=== PATIENT | female | born 1950 | race Caucasian/White ===

== ENCOUNTER 2021-04-25 15:30 | Inpatient (IN) | payer BC, OTHER ==
[~2021-04-25] VITALS: Ht 167.6 cm; Wt 73.9 kg
[2021-04-25 15:33] VITALS: BP 120/55
[2021-04-25 16:59] LABS: ABSOLUTE NEUTROPHILS 7.1 thou/uL (1.4-8.2); BASOPHILS 1.3 % (0.0-2.0); EOSINOPHILS 1.3 % (0.0-3.0); HEMATOCRIT 29.6 % (37.0-47.0); HEMOGLOBIN 9.4 gm/dL (12.0-15.0); MCH 28.4 pg (26.0-34.0); MCHC 31.6 g/dL (28.0-37.0); MCV 89.7 fL (80.0-100.0); MONOCYTES 12.1 % (1.0-8.0); PLATELET COUNT 873 thou/uL (150-400); POLYS 81.3 % (36.0-66.0); RDW 16.5 % (10.5-14.5); WBC 8.7 thou/uL (4.0-11.0)
[2021-04-25 17:18] LABS: CALCIUM 10.1 mg/dL (8.5-10.1); CREATININE 0.7 mg/dL (0.6-1.0); POTASSIUM 3.7 mmol/L (3.5-5.1)
[2021-04-25 17:24] LABS: ALBUMIN 1.8 g/dL (3.4-5.0); TOTAL BILIRUBIN 0.8 mg/dL (0.2-1.0); TOTAL PROTEIN 6.6 g/dL (6.4-8.2)
[2021-04-25 21:20] VITALS: BP 95/48
[2021-04-25 21:50] LABS: URINE BILIRUBIN 1+ (Negative); URINE BLOOD 3+ (Negative); URINE CLARITY CLOUDY; URINE COLOR RED; URINE GLUCOSE-RANDOM* NEGATIVE (Negative); URINE KETONES NEGATIVE (Negative); URINE LEUKOCYTES-REFLEX TRACE (Negative); URINE NITRITE-REFLEX NEGATIVE (Negative); URINE PROTEIN (DIPSTICK) 1+ (Negative)
[2021-04-25 21:52] LABS: ICTOTEST (BILI CONFIRMATORY) Negative (Negative)
[2021-04-25 21:53] LABS: BACTERIA-REFLEX 1-9 Few /HPF (None Seen); CASTS None Seen /LPF (None Seen); CRYSTALS None Seen /LPF (None Seen); SQUAMOUS 0-3 Few /LPF (0-3); URINE WBC-REFLEX 0-5 Rare /HPF (0-5)
--- NOTE | 2021-04-25 21:56 | NUR ---
PER PT'S DAUGHTER THE PT'S HEARTRATE IS NORMALLY IN THE 60 AND BP IS "NORMALLY LOW."
[2021-04-25 22:35] LABS: APTT 33.3 Seconds (24.5-32.8); INR 1.08; PROTIME 11.7 Seconds (10.5-12.1)
[2021-04-26] MEDS ORDERED: ATORVASTATIN CA20 MG PO
[2021-04-26] MEDS ORDERED: CELECOXIB200 MG PO
[2021-04-26] MEDS ORDERED: OMEPRAZOLE 20 M20 M1 PO (00:01)
[2021-04-26] MEDS ORDERED: LATANOPROST 0.2.5 ML OPHTHALMIC (00:01)
[2021-04-26] MEDS ORDERED: PROAIR HFA8.5 GM INH (00:01)
[2021-04-26] MEDS ORDERED: NEURONTIN 300M300 M2 PO (00:01)
[2021-04-26] MEDS ORDERED: CLEARLAX17 GM PO (00:02)
[2021-04-26] MEDS ORDERED: VITAMIN D21250 MCG PO (00:02)
[2021-04-26] MEDS ORDERED: PRESERVISION A1 EACH PO (00:03)
[2021-04-26] MEDS ORDERED: SAVELLA100 MG PO (00:03)
[2021-04-26] MEDS ORDERED: PERCOCET 10-321 EAC1 PO (00:04)
[2021-04-26 00:53] VITALS: BP 102/49
[2021-04-26 05:59] LABS: HEMATOCRIT 26.5 % (37.0-47.0); HEMOGLOBIN 8.6 gm/dL (12.0-15.0); MCH 28.9 pg (26.0-34.0); MCHC 32.3 g/dL (28.0-37.0); MCV 89.4 fL (80.0-100.0); RBC 2.96 mil/uL (4.20-5.00); RDW 16.9 % (10.5-14.5); WBC 7.7 thou/uL (4.0-11.0)
[2021-04-26 06:26] LABS: CALCIUM 9.4 mg/dL (8.5-10.1); CREATININE 0.7 mg/dL (0.6-1.0); POTASSIUM 3.7 mmol/L (3.5-5.1)
--- NOTE | 2021-04-26 12:20 | NUR ---
PT MOVED TO [facility] ED AT THIS TIME FOR CONTINUING CARE. REPORT GIVEN TO MIGUE SMITH AT THIS TIME
[2021-04-26 14:35] VITALS: BP 146/53
[2021-04-26 14:55] VITALS: BP 104/45
[2021-04-26 19:22] VITALS: BP 116/59
--- NOTE | 2021-04-26 20:38 | NUR ---
PATIENT ADMITTED TO CCU FROM ED - ADMITTED FOR RIGHT SIDED PLUERAL EFFUSION. PLAN TO HAVE SURGERY WITH DR. SMITH TOMORROW 04/27. PATIENT AND DAUGHTER BOTH AWARE AND AGREEABLE. CONSENTS SIGNED. PLACED ON TELE. SINUS RHYTHM. REMAINS ON ROOM AIR, REPORTS SHORTNESS OF BREATH WITH ACTIVITY BUT NO HYPOXIA. PATIENT NERVOUS ABOUT SURGERY TOMORROW DUE TO PREVIOUS SURGICAL HISTORY AND COMPLICATIONS. COMFORT PROVIDED. IV FLUIDS INFUSING. ADMISSION ASSESSMENTS COMPLETE. MED REC UPDATED. CONSENTS SIGNED. PRN PAIN MEDICATION GIVEN PER JUL. EDUCATED PATIENT ON NPO STATUS AT [facility]. DAUGHTER TO BE HERE IN THE MORNING PRIOR TO SURGERY. INSTRUCTED DAUGHTER TO BRING ANY VALUABLE OR PERSONAL BELONGINGS HOME THE PATIENT WILL GO TO OR THEN ICU POST OP. DAUGHTER WILL TAKE PT PURSE HOME. ALL QUESTIONS AND CONCERNS ANSWERED. PATIENT ADMITTED WITH EXISITING WOUNDS TO [facility]. PICUTRES TAKEN ON ADMIT AND IN PATIENT CHART.
[2021-04-27 04:55] VITALS: BP 115/65
[2021-04-27 05:36] LABS: GLYCOHEMOGLOBIN (HGB A1C) 5.5 % (4.8-5.6)
--- NOTE | 2021-04-27 05:42 | NUR ---
PT UP WITH ASSIST AND WALKER TO BR TO VOID SEVERAL TIMES THRU THE NOC, REMAINS NPO FOR VAT LATER THIS AM, PRN PAIN MEDS GIVEN FOR C/O NON CARDIAC CP, IV FLUIDS INFUSING IN L ARM IV SITE, VSS, WILL CON'T TO MONITOR PER PPOC.
[2021-04-27 07:57] VITALS: BP 118/55
[2021-04-27 08:48] LABS: HEMATOCRIT 27.6 % (37.0-47.0); HEMOGLOBIN 9.2 gm/dL (12.0-15.0); MCH 29.5 pg (26.0-34.0); MCHC 33.3 g/dL (28.0-37.0); MCV 88.5 fL (80.0-100.0); RBC 3.12 mil/uL (4.20-5.00); RDW 16.9 % (10.5-14.5); WBC 8.2 thou/uL (4.0-11.0)
[2021-04-27 08:53] LABS: CALCIUM 9.7 mg/dL (8.5-10.1); CREATININE 0.7 mg/dL (0.6-1.0); POTASSIUM 3.5 mmol/L (3.5-5.1)
--- NOTE | 2021-04-27 20:16 | NUR ---
Pt arrived to ICU accompanied by PACU RNs. Pt has right radial arterial line. pt has cardene gtt and NS IVF infusing at the right antecubital PIV and pt has fentanyl COATING MACHINE OPERATOR HELPER infusing at the continuous rate of 15mcg/hr. COATING MACHINE OPERATOR HELPER pump setting was verified and pump volume was cleared with ION IMPLANT MACHINE OPERATOR. Chest tubes insertion location was checked at the bedside with ION IMPLANT MACHINE OPERATOR. Drainage on the arrival to the icu was marked at the atrium. continue to monitor.
[2021-04-28] VITALS (17 sets, daily range): BP systolic 129–154; BP diastolic 52–75
[2021-04-28 03:54] LABS: HEMATOCRIT 33.8 % (37.0-47.0); MCH 28.7 pg (26.0-34.0); MCHC 32.5 g/dL (28.0-37.0); MCV 88.4 fL (80.0-100.0); RBC 3.83 mil/uL (4.20-5.00); RDW 16.4 % (10.5-14.5); WBC 12.3 thou/uL (4.0-11.0)
[2021-04-28 04:09] LABS: CALCIUM 9.8 mg/dL (8.5-10.1); CREATININE 0.5 mg/dL (0.6-1.0); MAGNESIUM 1.4 mg/dL (1.8-2.4); POTASSIUM 3.7 mmol/L (3.5-5.1)
--- NOTE | 2021-04-28 07:45 | NUR ---
ORDERS FOR EVAL AND TREAT HOWEVER Pt NOW IN ICU. WILL PLACE ON HOLD AND AWAIT NEW ORDERS WHEN APPROPRIATE
--- NOTE | 2021-04-28 09:34 | NUR ---
WOUND CONSULT; BILTERAL SBUTTOCKS STAGE 2 PRESSURE INJURIES WERE IDENTIFIED. SMALL SEROSANGINOUS DRAINAGE NOTED WITH NO ODOR. NO ERYTHEMA TO THE PERIWOUND. THE PATIENT HAS NO OTHER WOUND CARE CONCERNS AT THIS TIME. RECOMMENDATIONS; -BARRIER CREAM BID. -PRN COVER WITH A BORDER FOAM IF NEEDED. -TURN Q2H AT A MINIMUM, USE WEDGES AND PILLOWS. DISCUSSED WITH RN.
--- NOTE | 2021-04-28 10:07 | NUR ---
WOUND CONSULT; THE PATIENT HAS AREAS TO THE BILATERAL BUTTOCKS CONSISTANT WITH STAGE 2 PRESSURE INJURY. SCANT CLEAR DRAINAGE SEEN. NON ODOROUS. RECOMMENDATIONS; -BARRIER CREAM BID -Q2H TURNING AT A MINIMUM -USE WEDGES AND PILLOWS. DISCUSSED WITH RN
--- NOTE | 2021-04-28 16:59 | NUR ---
INITIAL ASSESSMENT: SW reviewed chart and spoke with nursing and hospitalist. Case also discussed during ICU rounds. Pt was transferred to [facility] from [facility] due to right pleural effusion. Pt is s/p VATS. Pt is on 1L of O2 and has chest tube in place. MIGUEL met with pt and son at bedside. Introduced role of SW. Pt is alert/orientated x 4. Pt reports she lives at home with her dtr. Prior to admission, pt was independent with ADLs. No use of DME or home O2. No hx of HH or post-acute placement. Pt's PCP is Dr. Daniel Tim in [place]. Therapy ordered to evaluate pt post-procedure. SW discussed discharge needs. Pt's son states they might be interested in HH services. Pt lives outside of [place]. MIGUEL is following to assist as needed with discharge planning.
[2021-04-29] VITALS (23 sets, daily range): BP systolic 116–144; BP diastolic 49–75
[2021-04-29 05:14] LABS: CALCIUM 9.1 mg/dL (8.5-10.1); CREATININE 0.5 mg/dL (0.6-1.0); MAGNESIUM 1.8 mg/dL (1.8-2.4); POTASSIUM 3.9 mmol/L (3.5-5.1)
[2021-04-29 05:16] LABS: HEMOGLOBIN 10.3 gm/dL (12.0-15.0); MCHC 32.5 g/dL (28.0-37.0)
[2021-04-29 05:19] LABS: HEMATOCRIT 31.6 % (37.0-47.0); MCH 28.8 pg (26.0-34.0); MCV 88.7 fL (80.0-100.0); RBC 3.56 mil/uL (4.20-5.00); RDW 16.5 % (10.5-14.5); WBC 11.3 thou/uL (4.0-11.0)
--- NOTE | 2021-04-29 13:22 | NUR ---
Fentanyl SHAKER OUT with basal discontiuned per provider and order changed to SHAKER OUT demand only at the same rate- 15 mcg, max 150 mcg 1-hour, and 6 minute lockout. Same bag infusing.
--- NOTE | 2021-04-29 16:34 | NUR ---
MIGUEL reviewed chart and spoke with nursing and hospitalist. Pt is POD#1 right VATS. Pt is on 2L of O2 via NC. Therapy evals ordered. [facility] consulted to assess for possible admission to inpt acute rehab. Will need insurance authorization for post-acute placement. MIGUEL spoke with [facility] and [facility], which are the two agencies who service wher pt lives. [place] is not able to start care until next week. HH referral to be faxed if needed. MIGUEL is following to assist as needed with discharge planning.
[2021-04-30] VITALS (11 sets, daily range): BP systolic 103–130; BP diastolic 40–57
[2021-04-30 05:50] LABS: HEMATOCRIT 27.7 % (37.0-47.0); HEMOGLOBIN 9.1 gm/dL (12.0-15.0); MCH 28.9 pg (26.0-34.0); MCHC 32.9 g/dL (28.0-37.0); MCV 87.9 fL (80.0-100.0); RBC 3.15 mil/uL (4.20-5.00); RDW 16.3 % (10.5-14.5); WBC 11.6 thou/uL (4.0-11.0)
[2021-04-30 06:22] LABS: CREATININE 0.5 mg/dL (0.6-1.0); MAGNESIUM 1.7 mg/dL (1.8-2.4); POTASSIUM 3.4 mmol/L (3.5-5.1)
--- NOTE | 2021-04-30 11:09 | NUR ---
SW reviewed chart and spoke with nursing and hospitalist. Case also discussed during ICU rounds. Pt is s/p right VATS. Chest tube is out. Pt is on room air. Case discussed with [facility] medical liaison, who states they are able to accept pt. SW requested [facility] submit for insurance authorization today. [facility] medical liaison to visit with pt to discuss acceptance to . MIGUEL is following to assist as needed with discharge planning.
--- NOTE | 2021-04-30 16:53 | NUR ---
ACUTE REHAB ADMISSIONS LIAISON SPOKE WITH PATIENT AND HER DAUGHTER REGARDING POSSIBILITY OF AN ACUTE REHAB STAY. ACUTE REHAB EXPLAINED TO PATIENT AND DAUGHTER WHO REQUESTED THAT LIAISON PROCEED WITH ATTEMPTING TO GET AUTHORIZATION FOR PATIENT TO COME TO FOR ACUTE REHAB. PATIENT'S INSURANCE CONTACTED AND CONFIRMED PATIENT HAS ACUTE REHAB BENEFIT. AUTHORIZATION WAS REQUESTED. D/C FRONT SIGHT ATTACHER INFORMED OF ABOVE. THANK YOU FOR THIS REFERRAL.
--- NOTE | 2021-04-30 17:30 | NUR ---
pt up in chair x 3 today. initially required 2 assist with transfer, progressed to 1 assist. rn transported pt to radiology on alarm security or surveillance monitor for chest xray pa/lateral and for kub. stood up for chest xray, then laid down on xray table for kub. pt had several times to transfer in which she improved. continues to pull 750 x 10 on incentive spirometer. pt c/o of constipation, then had 2 small stool, second stool soft, formed. increased appetite with lunch, consumed @ 50%. daughter present today providing pt support. report given MIGUE Shields at 1715. pt transported by wheelchair to CCU # [id number] at 1730.
[2021-05-01 02:43] LABS: HEMATOCRIT 30.6 % (37.0-47.0); HEMOGLOBIN 9.8 gm/dL (12.0-15.0); MCH 28.3 pg (26.0-34.0); MCHC 32.2 g/dL (28.0-37.0); MCV 87.9 fL (80.0-100.0); RBC 3.48 mil/uL (4.20-5.00); RDW 16.5 % (10.5-14.5)
--- NOTE | 2021-05-01 03:59 | NUR ---
RECEIVED PATIENT AT 1900H.RYLEE TIS ALERT AND ORIENTED X4.ON ROOM AIR BREATHING SPONTANEOUSLY.ASSESSMENT DONE CHARTED.MEDS GIVEN PER JUL.ALL NEEDS ATTENDED.TO CONTIOUSLY MONITOR.
[2021-05-01 04:03] LABS: CALCIUM 9.3 mg/dL (8.5-10.1); CREATININE 0.5 mg/dL (0.6-1.0); MAGNESIUM 1.7 mg/dL (1.8-2.4); POTASSIUM 3.9 mmol/L (3.5-5.1)
[2021-05-01 05:28] VITALS: BP 121/57
[2021-05-01 07:16] VITALS: BP 116/63
[2021-05-01 11:15] VITALS: BP 113/56
[2021-05-01 15:42] VITALS: BP 115/67
[2021-05-01 19:06] VITALS: BP 118/53
[2021-05-02 04:34] VITALS: BP 119/59
[2021-05-02 07:13] VITALS: BP 115/61
--- NOTE | 2021-05-02 09:17 | NUR ---
[facility] WITH DENIAL FOR ACUTE REHAB DUE TO INSUFFICENT INFORMATION. THIS DATE MELO FINCH COMPOSED DOCUMENTATION TO ANSWER ALL AREAS WHERE INSURANCE HAD QUESTIONS. THIS DOCUMENT WAS FAXED TO INSURANCE COMPANY AND CALL MADE TO REVIEWER TO INFORM THAT INFORMATION WAS SENT. WILL AWAIT INSURANCE RESPONSE.
[2021-05-02 11:04] VITALS: BP 115/60
--- NOTE | 2021-05-02 13:38 | NUR ---
[facility] CAN ACCEPT TODAY AND WORKING ON SECURING INS AUTH. THE INS HAD REQUESTED ADDITIONAL CLINICAL WHICH WAS PROVIDED TO THEM. PT MEDICALLY STABLE TO DC TO [facility] IF APPROVED BY INS. AWAITING A RESPONSE.
[2021-05-02 15:07] VITALS: BP 122/65
--- NOTE | 2021-05-02 15:21 | NUR ---
LYE BOILER SPOKE WITH PATIENT'S DAUGHTER WHO WAS CONCERNED ABOUT [facility] ACUTE REHAB BEING OUT OF NETWORK WITH PATIENT'S INSURANCE. DUNCAN FROM THE BUSINESS OFFICE CONTACTED PATIENT'S DAUGHTER AND EXPLAINED "MATCHING" DONE WITH PATIENT'S TYPE OF INSURANCE WHICH MAKES PATIENTS BILL NO HIGHER THEN IF PATIENT HAD GONE TO AN IN NETWORK PROVIDER. DAUGHTER STILL APPEARED CONCERNED ABOUT COSTS. NO RESPONSE BACK FROM PATIENT'S INSURANCE AT THIS TIME REGARDING AUTHORIZATION. SPOKE WITH D/C ADVANCED MANUFACTURING VICE PRESIDENT REGARDING ABOVE. SUGGESTED THAT SHE REACH OUR TO PATIENT'S DAUGHTER TO DISCUSS D/C PLAN.
--- NOTE | 2021-05-02 15:58 | NUR ---
SPOKE TO PATIENTS DAUGHTER OVER THE PHONE AND HELPED ANSWERING QUESTIONS. AFTER DISCUSSION WITH JEN IN ACUTE REHAB THIS SM WAS ABLE TO ANSWER HER QUESTIONS. DAUGHTER WANTS PT TO GO TO REHAB AND WILL AWAIT APPROVAL. FAXED ADDITIONAL NOTES THIS AM. [facility] READY TO ACCEPT ONCE INS AUTH IS OBTAINED.
[2021-05-02 20:30] VITALS: BP 125/56
[2021-05-03 04:30] VITALS: BP 119/67
[2021-05-03 07:00] VITALS: BP 113/69
--- NOTE | 2021-05-03 10:23 | O ---
[facility] [place] [address] OPERATIVE REPORT Name: YESICA SIEGEL Room #: 201-P [facility] IN M.R.#: [id number] Admission: 04/25/21 Attend Phys: Cindi Camarena Edwin Discharge: Date of : 46 Report #: [id number] THIS REPORT FOR: cc: Daniel Tim,Daniel Darnell,Etienne Rivers MD ~ DATE OF SERVICE: 04/27/2021 PREOPERATIVE DIAGNOSIS: Clotted hemothorax, clinically right. POSTOPERATIVE DIAGNOSIS: Clotted hemothorax, clinically right. OPERATION: Bronchoscopy, right video-assisted thoracoscopy, right thoracotomy with decortication. SURGEON: Etienne Orozco MD PULLMAN CAR CLERK: MARIA T Harris ANESTHESIA: General. INDICATIONS: The patient is 71 years old who had a right nephrostomy for kidney stone at . Unfortunately, the patient had a hemothorax as the result of that procedure and a bleed when the nephrostomy tube came out. A chest tube had been placed and the patient was ultimately sent to a correction facility where she stayed for a week. Once discharged at home, the patient developed shortness of breath. She saw her local physician who obtained a CT scan that showed large loculated fluid collections in the right chest. FINDINGS AND TECHNIQUE: After general anesthesia was established, flexible diagnostic bronchoscopy was performed. No endobronchial lesions were noted. Double lumen endotracheal tube was placed and the patient was positioned with right side up. Exposure was obtained through typical right video-assisted thoracoscopy incisions. Unfortunately, when we entered the chest, the lung was stuck to parietal pleura in many areas and there was a large amount of old blood and clotted blood in the chest. I thought in order to satisfactorily reexpand the lung, we needed to perform a posterolateral thoracotomy. An incision was made and the chest was entered through the fifth interspace using a rib-sparing, nerve-sparing approach. Large amounts of old blood and clot were seen and in addition, there was an investing organized peel around most of the lung, but largely around the lower lobe and the posterior aspects of the upper and middle lobe. A decortication of the entire chest was done using a typical sharp and blunt [facility] [address] [place] [address] OPERATIVE REPORT Name: YESICA SIEGEL Room #: 201-P [facility] IN [facility].#: [id number] Admission: 04/25/21 Attend Phys: Cindi Pineda Discharge: Date of : 46 Report #: [id number] technique. When I thought the decortication was satisfactory, the chest was irrigated with large amounts of saline and then 4 chest tubes were placed to drain the anterior, lateral, posterior and inferior pleural surfaces. The chest was closed in the usual fashion. The patient tolerated the procedure well and was taken to the recovery area. A chest x-ray was taken before the patient left the operating room. In lieu of counting all the instruments, sponge, needle and lap counts were correct, however. <ELECTRONICALLY SIGNED> By: Etienne Orozco MD 05/03/21 1023 1221 1236 Etienne Orozco MD /nt
--- NOTE | 2021-05-03 10:23 | HC ---
[facility] [place] [address] CONSULTATION Name: YESICA SIEGEL Room #: 201-P ADM IN M.R.#: [id number] Admission: 04/25/21 Attend Phys: Cindi Pineda Discharge: Date of : 46 Report #: [id number] THIS REPORT FOR: cc: Daniel Tim James DO Forman, John M. MD ~ DATE OF SERVICE: 04/26/2021 We were asked by Dr. Crawford to see the patient. HISTORY OF PRESENT ILLNESS: The patient is a 71-year-old in the Emergency Department, transferred here from [facility]. The patient, 3 weeks ago, underwent right percutaneous nephrolithotomy at [facility]. This was complicated by right-sided hemothorax and chest tube was placed for that. According to the family, the nephrostomy tube came out prematurely and this was associated with significant bleeding. The patient required interventional radiology embolization and she was also transfused for blood loss anemia. Ultimately, all tubes were removed and the patient was sent to a prison facility for a week and then sent home. At home, the patient has had progressive shortness of breath. Her local general practitioner obtained a CT scan that showed large right-sided loculated pleural effusions and the patient has been admitted for. This CT scan also shows suprarenal hematoma. We note that Urology has seen the patient and they have no plans for intervention regarding the hematoma and they are "encouraged by its stability." PAST MEDICAL HISTORY: Significant for anxiety, arthritis, asthma, skin cancer, macular degeneration, hyperlipidemia, gastroesophageal reflux disease, fibromyalgia, prediabetes, narcolepsy and nephrolithiasis. ALLERGIES: None known. HOME MEDICATIONS: Includes atorvastatin, celecoxib, eyedrops, omeprazole, albuterol, gabapentin, vitamins, milnacipran, oxycodone. 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 PHYSICAL EXAMINATION: HEENT: No scleral icterus. No arcus. NECK: No mass, no bruit. CHEST: Clear to auscultation anteriorly. HEART: Rhythm regular. ABDOMEN: Soft. EXTREMITIES: No clubbing, cyanosis or edema. [facility] [address] [place] [address] CONSULTATION Name: YESICA SIEGEL Room #: 201-P [facility] IN [facility].#: [id number] Admission: 04/25/21 Attend Phys: Cindi Pineda Discharge: Date of : 46 Report #: [id number] VASCULAR: 2+ dorsalis pedis pulses bilaterally. SKIN: No rash or infection. MUSCULOSKELETAL: No bone or joint asymmetry or deformity. NEUROLOGIC: No motor or sensory dysfunction. PSYCHIATRIC: The patient is oriented, but she is reluctant to speak as she is short of breath and daughter provides much of the history. ASSESSMENT AND PLAN: The patient appears to have loculated pleural effusions, which in this setting is likely to be hemothorax, which potentially could be contaminated by urine. There is no evidence of sepsis in terms of tachycardia or fever. I reviewed the CT scan findings with the patient and her family and discussed it in the context of her presentation. I have recommended video-assisted thoracoscopy to determine how organized the effusions are, it may be necessary to perform a thoracotomy to satisfactorily cleanse the pleural space. Risks and details of surgery were discussed and these include, but are not limited to bleeding, infection, anesthesia risks, and of course the imponderables of diagnoses. The patient and family understand all of this and will reflect. We will discuss timing with the patient and family once they have made a firm decision. Thank you for the consult. <ELECTRONICALLY SIGNED> By: Etienne Orozco MD 05/03/21 1023 1154 1854 Etienne Orozco MD /nt
--- NOTE | 2021-05-03 11:47 | NUR ---
WAS NOTIFIED BY PT'S NURSE THAT THE PT'S DTR IS NOT WANTING TO WAIT ON AUTH FOR [facility] RE[facility]AB SHE IS WANTING PT TO DC TODAY TO HOME WITH OUTPT THERAPY. PT WAS ALREADY TO HAVE EVAL WITH [facility] NEXT WEEK SO THE DR AND PT'S DTR ARE ALL IN AGREEMENT TO DC PT TO HOME WITH OUTPT THERAPY. DR TO WRITE SCRIPT I [facility] NO ANSWER. PT WILL NOTIFY [facility] ON WEDNESDAY AND OBTAIN FAX NUMBER AND IF THEY NEED MORE INFORMATION FOR THE EVAL SHE WILL CALL [facility] [employer] AND LET US KNOW.
[2021-05-03 11:59] LABS: ABSOLUTE NEUTROPHILS 6.1 thou/uL (1.4-8.2); BASOPHILS 1.3 % (0.0-2.0); EOSINOPHILS 8.2 % (0.0-3.0); HEMATOCRIT 33.8 % (37.0-47.0); HEMOGLOBIN 10.9 gm/dL (12.0-15.0); LYMPHOCYTES 9.3 % (24.0-44.0); MCH 28.4 pg (26.0-34.0); MCHC 32.3 g/dL (28.0-37.0); MCV 87.8 fL (80.0-100.0); MONOCYTES 7.7 % (1.0-8.0); POLYS 73.5 % (36.0-66.0); RBC 3.85 mil/uL (4.20-5.00); RDW 16.4 % (10.5-14.5); WBC 8.3 thou/uL (4.0-11.0)
[2021-05-03 12:00] VITALS: BP 131/68
[2021-05-03 12:02] LABS: PLATELET COUNT 1063 thou/uL (150-400)
[2021-05-03 12:21] LABS: CALCIUM 10.2 mg/dL (8.5-10.1); CREATININE 0.5 mg/dL (0.6-1.0); POTASSIUM 4.2 mmol/L (3.5-5.1)
[2021-05-03 12:25] LABS: PHOSPHORUS 3.4 mg/dL (2.6-4.7)
[2021-05-03 13:54] LABS: URINE BILIRUBIN NEGATIVE (Negative); URINE BLOOD 3+ (Negative); URINE COLOR YELLOW; URINE GLUCOSE-RANDOM* NEGATIVE (Negative); URINE KETONES NEGATIVE (Negative); URINE LEUKOCYTES-REFLEX TRACE (Negative); URINE NITRITE-REFLEX NEGATIVE (Negative); URINE PROTEIN (DIPSTICK) NEGATIVE (Negative); URINE SPECIFIC GRAVITY 1.015 (1.005-1.035); URINE UROBILINOGEN 0.2 E.U./dl (0.2-1.0)
[2021-05-03 13:55] LABS: URINE CLARITY SL HAZY
[2021-05-03 14:02] LABS: CASTS None Seen /LPF (None Seen); CRYSTALS None Seen /LPF (None Seen); SQUAMOUS 0-3 Few /LPF (0-3); URINE RBC 1-2 Rare /HPF (NONE SEEN); URINE WBC-REFLEX 6-15 Few /HPF (0-5)
[2021-05-03 14:45] LABS: ABSOLUTE RETIC COUNT 0.0739 10^6/uL; OBSERVED RETIC COUNT 1.93 % (0.6-2.6)
[2021-05-03 15:14] LABS: % SATURATION 22 % (20-39); IRON 36 ug/dL (50-170); TIBC 163 ug/dL (250-450)
[2021-05-03 15:33] LABS: APTT 29.6 Seconds (24.5-32.8); INR 1.02; PROTIME 11.1 Seconds (10.5-12.1)
[2021-05-03 17:00] VITALS: BP 117/70
[2021-05-03 19:30] VITALS: BP 113/57
[2021-05-03 22:06] LABS: IgA 269 mg/dL (64-422); IgG 887 mg/dL (586-1602); IgM 43 mg/dL (26-217)
--- NOTE | 2021-05-04 02:29 | NUR ---
PT TRANSFERRING TO [facility] WITH ASSIST AND IS TOLERATING FAIR. PERCOCET PROVIDING PAIN RELIEF. RESTING COMFORTABLY. NO NEEDS VOICED. CALL LIGHT WITHIN REACH. FREQUENT OBSERVATION.
[2021-05-04 03:50] VITALS: BP 117/50
[2021-05-04 05:08] LABS: MCV 88.5 fL (80.0-100.0)
[2021-05-04 05:09] LABS: ABSOLUTE NEUTROPHILS 5.9 thou/uL (1.4-8.2); BASOPHILS 0.5 % (0.0-2.0); EOSINOPHILS 7.9 % (0.0-3.0); HEMATOCRIT 34.7 % (37.0-47.0); HEMOGLOBIN 10.9 gm/dL (12.0-15.0); LYMPHOCYTES 12.6 % (24.0-44.0); MCH 27.7 pg (26.0-34.0); MCHC 31.3 g/dL (28.0-37.0); MONOCYTES 8.3 % (1.0-8.0); POLYS 70.7 % (36.0-66.0); RBC 3.92 mil/uL (4.20-5.00); RDW 16.3 % (10.5-14.5); WBC 8.3 thou/uL (4.0-11.0)
[2021-05-04 05:19] LABS: ALBUMIN 1.8 g/dL (3.4-5.0); CALCIUM 9.7 mg/dL (8.5-10.1); CREATININE 0.6 mg/dL (0.6-1.0); MAGNESIUM 1.9 mg/dL (1.8-2.4); PHOSPHORUS 3.1 mg/dL (2.5-4.9); TOTAL BILIRUBIN 0.2 mg/dL (0.2-1.0); TOTAL PROTEIN 6.2 g/dL (6.4-8.2)
[2021-05-04 05:21] LABS: PLATELET COUNT 1059 thou/uL (150-400)
[2021-05-04 07:00] VITALS: BP 114/61
[2021-05-04 07:08] LABS: HEMATOLOGY COMMENTS Note: (()); HEMOGLOBIN 10.9 g/dL (11.1-15.9)
[2021-05-04 11:00] VITALS: BP 122/66
[2021-05-04 15:00] VITALS: BP 104/60
[2021-05-04 19:31] VITALS: BP 113/61
--- NOTE | 2021-05-05 01:15 | NUR ---
PT AMBULATING TO BATHROOM WITH WALKER AND STANDBY ASSIST AND IS TOLERATING FAIR. PERCOCET PROVIDING PAIN RELIEF. RESTING COMFORTABLY. NO NEEDS VOICED. CALL LIGHT WITHIN REACH. FREQUENT OBSERVATION.
[2021-05-05 03:04] VITALS: BP 103/57
[2021-05-05 05:12] LABS: WBC 7.3 thou/uL (4.0-11.0)
[2021-05-05 05:14] LABS: HEMATOCRIT 33.2 % (37.0-47.0); HEMOGLOBIN 11.1 gm/dL (12.0-15.0); MCH 29.4 pg (26.0-34.0); MCHC 33.6 g/dL (28.0-37.0); MCV 87.6 fL (80.0-100.0); RBC 3.79 mil/uL (4.20-5.00); RDW 16.7 % (10.5-14.5)
[2021-05-05 07:00] VITALS: BP 109/59
[2021-05-05] MEDS ORDERED: AMOX TR-K CLV1 EAC4 PO (11:05)
[2021-05-05 11:55] VITALS: BP 114/64
[2021-05-05 12:18] VITALS: BP 114/64
[2021-05-05 14:07] LABS: KAPPA FREE LIGHT CHAINS 27.9 mg/L (3.3-19.4); KAPPA/LAMBDA RATIO 1.37 (0.26-1.65); LAMBDA FREE LIGHT CHAINS 20.3 mg/L (5.7-26.3)
--- NOTE | 2021-05-05 14:30 | NUR ---
RECEIVED NOTIFICATION [facility] ACCEPTED PT FOR POST ACUTE REHAB AND AUTH HAS BEEN APPROVED. PT AND DAUGHTER DECLINE POST ACUTE REHAB AND DECIDED TO TAKE HER HOME FOR OUTPT PT/OT. PTS DAUGHTER INFORMED [facility] WILL SEE PT OUTPT ONCE MEDICALLY STABLE TO DC. CLINICAL UPDATES FAXED TO [facility] AT [phone] AND CONFIRMATION FAX RECEIVED. PTS DAUGHTER AND SON HAD QUESTIONS ABOUT PLATLETS AND UTI. THIS CM CLARIFIED WITH DR MEDLEY IN PERSON. INSTRUCTED TO MONITOR PLATLETS AND WILL DC WITH ORAL ABTS. REVEIWED WITH PT AND SON AND BOTH VOICED UNDERSTANDING. PT REPORTS SHE LIVES WITH HER DAUGHTER GABE WHO WILL ASSIST 07/12 AND PTS SON LIVES 1/4 MILE AWAY. SCRIPT GIVEN TO PT AND DAUGHTER FOR PT/OT WELL A RELEASE TO EMPLOYER PER PT REQUEST. NURSING MADE AWARE. NO FURTHER CM INTERVENTIONS AT THIS TIME.
--- NOTE | 2021-05-05 16:39 | NUR ---
PT DISCHARGED FROM HOSPITAL AT 1636 VIA WHEELCHAIR AND RADIO DIVISION LIEUTENANT ASSISTANCE. PT DISCHARGED TO HOME WITH FAMILY. PICTURE OF BUTTOCKS WOUND DOCUMENTED BEFORE DISCHARGE, PT GIVEN DISCHARGE EDUCATION AND PRESCRIPTION.
[2021-05-05 19:07] LABS: GLOBULIN TOTAL 3.4 g/dL (2.2-3.9); M-SPIKE Not Observed g/dL (Not Observed)
[2021-05-05 20:06] LABS: ANA INTERPRETATION Negative (())
--- NOTE | 2021-05-06 08:04 | HC ---
[facility] [place] [address] [place] [address] CONSULTATION Name: YESICA SIEGEL Room #: 201-P [facility] IN ..#: [id number] Admission: 04/25/21 Attend Phys: Cindi Pineda Discharge: 05/05/21 Date of : 46 Report #: [id number] THIS REPORT FOR: cc: Daniel Tim James DO Barry, Joseph W. MD ~ DATE OF SERVICE: 05/05/2021 INFECTIOUS DISEASE CONSULTATION ATTENDING PHYSICIAN: Dr. Pineda. REASON FOR EVALUATION: Evaluation of complicated urinary tract infection. HISTORY OF PRESENT ILLNESS: Chart reviewed. The patient examined. This is a 71-year-old woman with very extensive medical history who has had a complicated hospital course dating back to latter part of March. She had been hospitalized with appears to be obstructive uropathy with nephrolithiasis, underwent right percutaneous nephrolithotomy with tube placement. This was complicated by right hemothorax requiring a chest tube due to the blood loss, underwent transfusion. Subsequent to that, she had inadvertent dislodgement of the tube with bleeding, required a right ureteral stent placement and again had additional bleeding as well, underwent an angio embolization. Subsequent to that, was transferred to long-term rehab facility. She was again seen in the Emergency Room here on 04/25 complaining of abdominal pain, underwent CT scanning, felt to have a persistent hematoma following the thorax. Referred for operative procedure on the 04/27, underwent right-sided video-assisted thoracoscopy, right thoracotomy with decortication. Postop course has been difficult, has had issues with thrombocytosis, peaking platelet count over a million. Repeat urinalysis done on 05/03 which showed moderate pyuria and moderate bacteriuria. Urine culture with growth of Enterococcus faecalis in low numbers, 40,000 as well as Staphylococcus epidermidis. This morning, she underwent renal ultrasound, which showed decrease in the appearance of the right inferior pole renal calculi, no current findings of obstruction, several right renal cyst. There was a right-sided fluid collection posterior superior to the right kidney. She has been empirically treated with ceftriaxone. She denies significant pain at this point, although she notes she is quite uncomfortable. She has had diminished appetite, poor p.o. intake, mild respiratory complaints, otherwise maintained on ambient air at this point. She has been afebrile. ALLERGIES: None known. CURRENT MEDICATIONS: Include ferrous sulfate, ceftriaxone, heparin subcutaneous dosing, alprazolam, folic acid, diphenhydramine, famotidine, p.r.n. analgesics, antiemetics, ipratropium/albuterol inhaler. [address] [address] CONSULTATION Name: YESICA SIEGEL Room #: 201-P [facility] IN M.R.#: [id number] Admission: 04/25/21 Attend Phys: Cindi Pineda Discharge: 05/05/21 Date of : 46 Report #: [id number] PAST MEDICAL HISTORY: As described above, history of renal lithiasis, anxiety, arthritis, asthma, macular degeneration, fibromyalgia, reflux, glaucoma, hyperlipidemia, prediabetes and narcolepsy. SOCIAL HISTORY: She is , nonsmoker, no ethanol, no illicit drug use. FAMILY HISTORY: Noncontributory. REVIEW OF SYSTEMS: Otherwise, unremarkable. PHYSICAL EXAMINATION: GENERAL: She appears chronically ill, undernourished. Appears mildly encephalopathic, mild to moderate distress. HEENT: Normocephalic. Extraocular muscles intact. NECK: Supple. LUNGS: Diminished breath sounds. HEART: Regular. I do not appreciate a murmur. ABDOMEN: Mildly distended, generally soft. There is no significant CVA tenderness. No palpable spinal tenderness. She has got a dressing in place over the right side. GENITOURINARY AND RECTAL: Deferred. LABORATORY DATA: Urine culture as described above, 40,000 colony forming units per mL of Enterococcus faecalis, 20,000 colony forming units per mL of Staphylococcus epidermidis, Enterococcus is very susceptible exception in vitro resistant to tetracycline. CBC: White count 7.3, H and H 11.1 and 33.2, platelet count of 973, likely acute. Electrolytes: Sodium 138, potassium 4.0, chloride 104, bicarbonate 27, anion gap of 7, BUN and creatinine 11 and 0.6, glucose of 117, AST of 56, ALT of 27, albumin 1.8, total protein 6.2. Rheumatoid factor less than 10. Quantitative immunoglobulins normal range, IgG 887, IgA 269, IgM 243. TSH 1.277. Ferritin elevated at 64. Urinalysis described above. ASSESSMENT AND PLAN: Complicated urinary tract infection. The patient has had multiple procedures. Certainly at risk of the isolated organisms, seemed to be less purulent. It is reasonable to go ahead and treat. We will adjust antibiotic therapy. At this point, certainly remains quite tenuous. We will continue to monitor expectantly. <ELECTRONICALLY SIGNED> By: Hugh Kelley MD 05/06/2104 06 Hugh Kelley MD /nt
--- NOTE | 2021-05-07 12:07 | PATH ---
[facility] [address] [place] [address] PATHOLOGY RPT PROCEDURE Name: JACY SIEGEL Sindi Room #: 201-P [facility] IN M.R.#: [id number] Admission: 04/25/21 Date of : 46 Discharge: 05/05/21 Report #: [id number] Path Case #: [id number] [facility] Accession Number: [id number] . 01 Material submitted: . pleura - RIGHT PLEURAL PEEL. Modifiers: right . 01 Clinical history: . DECORTICATION OF LUNG PLEURAL EFFUSION . 01 Diagnosis: Pleura, "right pleural peel": - Extensive necrosis with acute inflammation and recent hemorrhage. - Focal atypical mesothelial cells amongst reactive mesothelial cells. (See comment) . (SHA:yazan; 05/02/2021) [facility] 05/07/2021 1129 Local . 01 Comment: Immunoperoxidase stains (block A1): . Desmin: Positive GRACIE: Scant weak P53: Weak Ki-67: Focally high TTF-1: Negative CK7: Negative CK5/6: Weakly positive AE1/AE3: Positive SMA: Stains vessels . The atypical mesothelial cells are likely reactive. There is marked inflammation present . This case is also reviewed by Dr. Adryan Chacon who agrees with the above diagnosis. Suggest clinical correlation and follow up as clinically indicated. (SHA:mml; 05/02/2021) . 01 Electronically signed: . Dar Alvarenga MD, Pathologist NPI- [id number] . 01 Gross description: . The specimen is received in formalin, labeled "Jacy Siegel, right [place] [id number] PATHOLOGY RPT PROCEDURE Name: JACY SIEGEL Sindi Room #: 201-P [facility] IN [facility]#: [id number] Admission: 04/25/21 Date of : 46 Discharge: 05/05/21 Report #: [id number] Path Case #: [id number] pleural peel". Received is a large amount of dusky garcía-brown tissue admixed with a large amount of blood coagulum measuring 4.3 x 19.4 x 5.1 cm in aggregate dimensions. The specimen is submitted representatively in cassette A1. (CAA; 05/01/2021) QAC/QAC 05/01/2021 1245 Local . 01 Pathologist provided ICD-10: R09.1, R04.89 . 01 CPT . 213544, [id number], [id number] Specimen Comment: A courtesy copy of this report has been sent to [phone], [phone] Specimen Comment: [phone], Specimen Comment: Report sent to , DR SPIVEY / DR SMITH Performed at: [address], [place], [place] [id number] MD Dar Alvarenga MD Phone: [phone]
== END 2021-05-05 16:44 | disposition home or self-care (01) | DRG 163 ==
LOC: ER 15:30 → EROBS 21:12 → 2N 21:12 → ICU 21:12 → EROBS 04-26 02:09 → 2N 04-26 14:44 → ICU 04-27 12:05 → 2N 04-30 17:35
PROVIDERS: Anesthesiology; Emergency Medicine; Internal Medicine; Nurse Practitioner Family; Physician Assistant; ADMIT Hospitalist; ATTEND Hospitalist
PROC: 0BCC4ZZ Extirpation of Matter from Right Upper Lung Lobe, Percutaneous Endoscopic Approach (ICD-10-PCS; principal; 2021-04-27)
PROC: 0BC Respiratory System, Extirpation (ICD-10-PCS; principal; 2021-04-27)
PROC: 0BJ08ZZ Inspection of Tracheobronchial Tree, Via Natural or Artificial Opening Endoscopic (ICD-10-PCS; principal; 2021-04-27)
PROC: 30233R1 Transfusion of Nonautologous Platelets into Peripheral Vein, Percutaneous Approach (ICD-10-PCS; 2021-04-27)
DX: J94.2 Hemothorax (principal); E43 Unspecified severe protein-calorie malnutrition; J96.01 Acute respiratory failure with hypoxia; N39.0 Urinary tract infection, site not specified; J90 Pleural effusion, not elsewhere classified; Z20.822 Contact with and (suspected) exposure to COVID-19; D64.9 Anemia, unspecified; D75.839 Thrombocytosis, unspecified; I88.9 Nonspecific lymphadenitis, unspecified; F41.9 Anxiety disorder, unspecified; Z68.26 Body mass index [BMI] 26.0-26.9, adult; B95.2 Enterococcus as the cause of diseases classified elsewhere; K21.9 Gastro-esophageal reflux disease without esophagitis; E78.5 Hyperlipidemia, unspecified; R73.9 Hyperglycemia, unspecified; M79.7 Fibromyalgia; Z87.891 Personal history of nicotine dependence; Z82.49 Family history of ischemic heart disease and other diseases of the circulatory system
CPT/HCPCS: 10078; 10081; 47405; 50010; 50101; 50386; 50403; 50455; 51301; 52265; 54118; 56524; 56525; 56526; 56527; 56528; 58585; 62110; 62900; 65020; 65040; 65090; 65105; 65129; 70005